=== PATIENT | female | born 1985 | race Caucasian/White ===

== ENCOUNTER 2022-03-17 13:03 | Emergency (ER) | payer BC ==
[~2022-03-17] VITALS: Ht 170.2 cm; Wt 77.1 kg
== END 2022-03-17 15:32 | disposition home or self-care (01) ==
LOC: ER 13:03
DX: O26.892 Other specified pregnancy related conditions, second trimester (principal); Z37.2 Twins, both liveborn; Z3A.25 25 weeks gestation of pregnancy; K05.30 Chronic periodontitis, unspecified